=== PATIENT | female | born 1975 | race Caucasian/White ===

== ENCOUNTER 2017-10-05 00:48 | Emergency (ER) | payer OTHER ==
[2017-10-05] MEDS ORDERED: Lidocaine 1% 20 ML MDV ONE (00:59)
[2017-10-05] MEDS ORDERED: Adacel (T-DAP) 0.5 ML VIAL ONE (01:02)
== END 2017-10-05 01:25 | disposition home or self-care (01) ==
LOC: MADERS 00:48
DX: S61.412A Laceration without foreign body of left hand, initial encounter (principal); R03.0 Elevated blood-pressure reading, without diagnosis of hypertension; W26.8XXA Contact with other sharp object(s), not elsewhere classified, initial encounter
CPT/HCPCS: 12001; 90471; 90715; J2001